=== PATIENT | female | born 1980 | race Hispanic/Latino ===

== ENCOUNTER → 2016-12-09 | Outpatient (CLI) | payer OTHER ==
[~2016-12-09] VITALS: Ht 160 cm; Wt 106.1 kg
[~2016-12-09] MED LIST: ACCUPRIL5 MG PO; ACTOS15 MG PO; ENDOCET 5-3251 EACH PO; FLOVENT 44120 INHALA IH; GLIPIZIDE XL10 MG PO; HUMALOG100 UNIT/1 SC; IBUPROFEN800 MG PO; LANTUS 10100 UNITS/ SC; LOVASTATIN40 MG PO; METFORMIN HCL1000 MG PO; OMEPRAZOLE40 M1 PO; PEPCID20 MG PO; PRILOSEC40 MG PO; RANITIDINE HCL150 MG PO; RELAFEN500 M1 PO; SIMVASTATIN40 MG PO; VICTOZA 2-0.6 MG/0.1 SC; ZANTAC150 MG PO; ZESTRIL,PRINIVI10 MG PO; ZOFRAN4 MG PO
== END | disposition home or self-care (01) ==
LOC: OPR 09:57 → EDSTATUS 10:00 → OPR 10:00
PROC: 0FB03ZX Excision of Liver, Percutaneous Approach, Diagnostic (ICD-10-PCS; principal; 2016-12-09)
DX: K76.0 Fatty (change of) liver, not elsewhere classified (principal); R79.89 Other specified abnormal findings of blood chemistry
CPT/HCPCS: 77012; 85027; 85610; 85730; 88307; 88313; J3010

== ENCOUNTER 2017-07-31 16:13 | Emergency (ER) | payer SELFPAY ==
[~2017-07-31] VITALS: Ht 160 cm; Wt 100.1 kg
[2017-07-31] MEDS ORDERED: HYCODAN SYRUP480 ML PO (18:18)
[2017-07-31 18:33] VITALS: BP 114/77
== END 2017-07-31 18:33 | disposition home or self-care (01) ==
LOC: EME 16:13
DX: J06.9 Acute upper respiratory infection, unspecified (principal); B34.9 Viral infection, unspecified; F17.200 Nicotine dependence, unspecified, uncomplicated
CPT/HCPCS: 71020; 99281; 99284